=== PATIENT | female | born 1985 | race Native Hawaiian/Other Pacific Islander ===

== ENCOUNTER 2017-05-01 14:20 | Emergency (ER) | payer SELFPAY ==
[~2017-05-01] VITALS: Ht 160 cm; Wt 54.4 kg
--- NOTE | 2017-05-01 14:58 | NUR ---
left without been seen.
== END 2017-05-01 15:02 | disposition left against medical advice (07) ==
LOC: ER 14:20
DX: Z53.21 Procedure and treatment not carried out due to patient leaving prior to being seen by health care provider (principal)
CPT/HCPCS: 73660; 99281; A4663

== ENCOUNTER 2017-06-21 14:25 | Outpatient (CLI) | payer SELFPAY ==
[2017-06-22 06:07] LABS: HEPATITIS B SURFACE AB Reactive (.)
[2017-06-22 08:07] LABS: RUBELLA AB, IgG 4.34 index (Immune >0.99); VARICELLA ZOSTER IgG 677 index (Immune >165)
== END 2017-06-21 23:59 | disposition home or self-care (01) ==
LOC: LAB 14:25
PROVIDERS: ATTEND Internal Medicine
DX: Z02.1 Encounter for pre-employment examination (principal); R76.11 Nonspecific reaction to tuberculin skin test without active tuberculosis
CPT/HCPCS: 36415; 71010; 86706; 86762